=== PATIENT | male | born 1950 | race Caucasian/White ===

== ENCOUNTER 2024-06-15 10:02 | Outpatient (REF) | payer SELFPAY ==
[2024-06-15 13:42] LABS: MANUAL DIFF FLAG NO
[2024-06-15 13:52] LABS: Basophils Percent Auto 0.5 % (0-2); Eosinophils Absolute Auto 0.2 X10*3/uL (0.0-0.4); Eosinophils Percent Auto 5.1 % (0-4); Hematocrit 41.3 % (42.0-52.0); Hemoglobin 13.9 g/dl (14.0-18.0); Imm Gran Abs Auto 0.02 X10*3/uL (0.00-0.03); Imm Gran Pct Auto 0.5 % (0.0-0.4); Lymphocytes Percent Auto 23.3 % (20-40); Mean Corpuscular HGB Conc 33.7 g/dl (31.0-36.0); Mean Corpuscular Hemoglobin 32.3 pg (27.0-33.0); Mean Corpuscular Volume 95.8 fL (80.0-98.0); Mean Platelet Volume 10.1 fL (9.4-12.4); Monocytes Absolute Auto 0.5 X10*3/uL (0.1-1.2); Monocytes Percent Auto 10.7 % (2-11); Neutrophils Absolute Auto 2.6 x10*3/uL (2.0-8.3); Neutrophils Percent Auto 59.9 % (45-73); Platelet Count 176 X10*3/uL (160-400); Red Blood Count 4.31 X10*6/uL (4.60-5.80); Red Cell Distribution Width 12.2 % (11.0-16.0); White Blood Count 4.3 X10*3/uL (4.8-10.8)
[2024-06-15 14:28] LABS: Erythrocyte Sedimentation Rate 6 MM/HR (0-15)
[2024-06-15 16:26] LABS: Alanine Aminotransferase 17 U/L (0-40); Alkaline Phosphatase 90 U/L (39-117); Anion Gap 11 (12-20); Aspartate Amino Transferase 27 U/L (5-37); Blood Urea Nitrogen 13 mg/dL (9-16); Calcium 9.2 mg/dL (8.4-10.2); Carbon Dioxide 25 mmol/L (22-29); Chloride 109 mmol/L (96-108); Cholesterol 165 mg/dL (<200); Estimated Glomerular Filt Rate > 60; Glucose Random 74 mg/dL (60-115); HDL Cholesterol 75 mg/dL (>40); Iron 115 mcg/dL (45-160); LDL Cholesterol Calculated 82 mg/dL (<100); Percent Iron Saturation 36 % (15-50); Potassium 4.3 mmol/L (3.3-5.1); Sodium 141 mmol/L (135-145); Thyroid Stimulating Hormone 1.41 uIU/mL (0.32-4.0); Total Iron Binding Capacity 316 mcg/dL (228-428); Total Protein 6.8 g/dL (6.5-8.0); Triglycerides 40 mg/dL (<150); Unsaturated Iron Binding 201 ug/dL
[2024-06-15 17:01] LABS: Prostate Specific Antigen 2.38 ng/mL (<0.05-4.0); Vitamin B12 344 pg/mL (200-900)
[2024-06-19 18:28] LABS: VITAMIN D (1,25 OH) D3 45 pg/mL; Vit D (1,25-Dihydroxy) Total 45 pg/mL (18-72); Vitamin D (1,25 OH) D2 <8 pg/mL
== END 2024-06-15 10:03 | disposition home or self-care (01) ==
LOC: HO.MANLDS 10:02
PROVIDERS: Visit Provider Internal Medicine
DX: I10 Essential (primary) hypertension (principal); R53.83 Other fatigue; Z12.5 Encounter for screening for malignant neoplasm of prostate
CPT/HCPCS: 36415; 80053; 80061; 82607; 82652; 83540; 84153; 84443; 85025; 85652